=== PATIENT | male | born 1960 | race Caucasian/White ===

== ENCOUNTER 2019-09-12 15:19 | Emergency (ER) | payer SELFPAY ==
[2019-09-12 15:32] VITALS: TEMP 97.9; BMI 27.8
[2019-09-12] MEDS ORDERED: PANTOPRAZOLE SODIUM 40 MG in SODIUM CHLORIDE 100 ML IVPB ONE (15:48)
[2019-09-12] MEDS ORDERED: LABETALOL HCL 5 MG/1 ML (100MG/20 ML VIAL) IVPUSH ONE ×3 (15:49→18:25)
[2019-09-12] MEDS ORDERED: LABETALOL HCL 5 MG/1 ML (100MG/20 ML VIAL) ONE (16:06)
[2019-09-12] MEDS ORDERED: PANTOPRAZOLE SODIUM 40 MG VIAL ONE (16:06)
[2019-09-12 16:58] LABS: ALBUMIN 3.8 g/dl (3.4-5.0); BILIRUBIN,TOTAL 0.9 mg/dl (0.2-1); CALCIUM 8.4 mg/dl (8.5-10); CREATININE 0.8 mg/dl (0.55-1.3); TOT PROT 6.5 g/dl (6.4-8.2)
[2019-09-12 16:59] LABS: BASO % 0.6 % (0-2.0); EOS % 2.1 % (0-4.5); HEMATOCRIT 44.6 % (35.4-49); HEMOGLOBIN 14.5 GM/dl (11.7-16.9); LYMPH % 40.1 % (8-40); MCH 31.1 pg (25.7-33.7); MCHC 32.6 g/dl (32.0-35.9); MEAN CELL VOLUME 95.4 fl (80-96); MEAN PLT VOLUME 9.3 fl (7.5-11.1); MONO % 14.2 % (3.8-10.2); PLATELET COUNT 141 K/MM3 (134-434); RBC 4.67 M/mm3 (4.00-5.60); RDW 12.3 % (11.9-15.9); WHITE BLOOD COUNT 3.5 K/mm3 (4.0-10.8)
[2019-09-12] MEDS ORDERED: MAG HYDROX/AL HYDROX/SIMETH -MYLANTA- ORAL SUSPENSION PO ONE (18:24)
[2019-09-12] MEDS ORDERED: MAG HYDROX/AL HYDROX/SIMETH 30 ML UNIT-DOSE CUP ONE (18:39)
--- NOTE | 2019-09-12 19:02 | PDOC ---
Documentation entered by Shireen Patricia SCRIBE, acting as scribe for Kody Stanford MD. Kody Stanford MD: This documentation has been prepared by the scribe, Shireen York SCRIBE, under my direction and personally reviewed by me in its entirety. I confirm that the documentation accurately reflects all work, treatment, procedures, and medical decision making performed by me. History of Present Illness <Adriana Oates - Last Filed: 09/13/19 00:46> - General History Source: Patient Exam Limitations: No Limitations <Kody Stanford - Last Filed: 09/13/19 09:46> - General Chief Complaint: Chest Pain Stated Complaint: chest pain - History of Present Illness Initial Comments: 09/12/19 15:28 The patient is a 58 year old male with a significant PMH of NC (october 2011) who presents to the ED sent by his felter tennis balls for evaluation of hypertension and midsternal chest tightness. Patient reports that he was tested positive for the influenza yesterday at Urgent Care and upon taking his BP it was 155/115, he notes he is now on tamiflu and has been experiencing diarrhea. Patient then reports that today, he took his BP again and it was 160/120, so patient called his felter tennis balls's office who advised him to come to the ED. Patient states that he normally has GI issues, including indigestion, for which he normally takes probiotic yogurt for and occasional tums. He endorses feeling his indigestion today. Patient reports having a stress test on Sunday09/10/2019, which was unremarkable. 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 NC October 2011. The patient denies shortness of breath, headache and dizziness. Denies fever, chills, nausea, vomiting, and constipation. Denies dysuria, frequency, urgency and hematuria. Allergies: NKDA Social Hx: Family Hx: none reported Surgical Hx: Tried to place stent, unsuccessful. PCP: Cards: Michael (Kody Stanford) Past History <Adriana Oates - Last Filed: 09/13/19 00:46> - Past Medical History Anemia: No Asthma: No Cancer: No Cardiac Disorders: Yes (NC 2011) CVA: No COPD: No CHF: No Dementia: No Diabetes: No GI Disorders: Yes (GAS/BLOATING) Disorders: No HTN: Yes Hypercholesterolemia: Yes Liver Disease: No Seizures: No Thyroid Disease: No - Surgical History Abdominal Surgery: No Appendectomy: No Cardiac Surgery: Yes (CARDIAC STENTING 2011) Cholecystectomy: No Lung Surgery: No Neurologic Surgery: No Orthopedic Surgery: No - Psycho Social/Smoking Cessation Hx Smoking History: Never smoked Have you smoked in the past 12 months: No Hx Alcohol Use: Yes (3 X SEVERAL DAYS WKLY) Drug/Substance Use Hx: No Substance Use Type: Alcohol Hx Substance Use Treatment: No <Kody Stanford - Last Filed: 09/13/19 09:46> - Past Medical History Allergies/Adverse Reactions: Allergies Allergy/AdvReac Type Severity Reaction Status Date / Time No Known Drug Allergies Allergy Verified 09/12/19 15:20 ENVIRONMENTAL Allergy Intermediate NASAL Uncoded 09/12/19 15:20 CONGESTION WOOL Allergy Intermediate Itching Uncoded 09/12/19 15:20 Home Medications: Ambulatory Orders Benazepril HCl 40 mg PO BID tablet 08/24/14 Carvedilol 12.5 mg PO BID tablet 08/24/14 Rosuvastatin Calcium [Crestor] 5 mg PO DAILY tablet 12/29/16 Spironolactone 50 mg PO DAILY tablet 12/29/16 Cardiac Specific PMH - Complaint Specific PMHX Pacemaker: No <Kody Stanford - Last Filed: 09/13/19 09:46> *Physical Exam <Kody Stanford - Last Filed: 09/13/19 09:46> - Vital Signs Last Vital Signs Temp Pulse Resp BP Pulse Ox 97.9 F 63 17 161/11 L 97 09/12/19 15:20 09/12/19 20:00 09/12/19 20:00 09/12/19 20:00 09/12/19 18:55 - Physical Exam 09/12/19 16:30 VITALS: (+) BP moderatly elevated. GENERAL: Well-appearing, well-nourished. No apparent distress. HEENT: Normocephalic, atraumatic. PERRL, EOM intact. CARDIOVASCULAR: S2 was not prominent. Normal S1, S2. Regular rate and rhythm. PULMONARY: Clear to auscultation bilaterally. ABDOMEN: Soft, non-distended, non-tender. EXTREMITIES: Normal ROM in all four extremities. No gross deformities. SKIN: Warm, dry. No rash NEUROLOGICAL: No focal neurological deficits. (Kody Stanford) ED Treatment Course - LABORATORY CBC & Chemistry Diagram: 09/12/19 16:28 09/12/19 16:28 <Adriana Oates - Last Filed: 09/13/19 00:46> - LABORATORY CBC & Chemistry Diagram: 09/12/19 16:28 09/12/19 16:28 <Kody Stanford - Last Filed: 09/13/19 09:46> - ADDITIONAL ORDERS Additional order review: 09/12/19 16:28 RBC 4.67 MCV 95.4 MCHC 32.6 RDW 12.3 MPV 9.3 Neutrophils % 43.0 Lymphocytes % 40.1 H D Monocytes % 14.2 H Eosinophils % 2.1 Basophils % 0.6 - RADIOLOGY Radiology Studies Ordered: Category Date Time Status CHEST X-RAY PORTABLE* [RAD] Stat Radiology 09/12/19 15:48 Completed - Medications Given in the ED: ED Medications Discontinued Medications Generic Name Dose Route Start Last Admin Trade Name Freq PRN Reason Stop Dose Admin Al Hydroxide/Mg Hydroxide 30 ml 09/12/19 18:24 09/12/19 18:40 Mylanta Suspension - PO 09/12/19 18:25 30 ml ONCE ONE Administration Pantoprazole Sodium 40 mg/ 100 mls @ 200 mls/hr 09/12/19 15:48 09/12/19 16:06 Sodium Chloride IVPB 09/12/19 16:17 200 mls/hr ONCE ONE Administration Labetalol HCl 20 mg 09/12/19 15:49 09/12/19 16:06 Normodyne Injection - IVPUSH 09/12/19 15:50 20 mg ONCE ONE Administration Labetalol HCl 20 mg 09/12/19 17:08 09/12/19 17:16 Normodyne Injection - IVPUSH 09/12/19 17:09 20 mg ONCE ONE Administration Labetalol HCl 10 mg 09/12/19 18:25 09/12/19 18:41 Normodyne Injection - IVPUSH 09/12/19 18:26 10 mg ONCE ONE Administration Medical Decision Making <Kody Stanford - Last Filed: 09/13/19 09:46> - Medical Decision Making 09/12/19 17:10 Patient with high blood pressure, normally adequately controlled under the care of felter tennis balls Dr. Tinsley. Noted to be elevated today. He also developed epigastric and lower mid chest pain, which is similar in character to pain in the past that has been attributed to hyperacidity. It is described as an epigastric and lower sternal burning and "tightness" there was no radiation to the shoulders arms neck or jaw. There was no nausea, diaphoresis, lightheadedness or dizziness, or shortness of breath. Patient is being treated for influenza with Tamiflu. Had a positive flu swab at urgent care 2 days ago. Past medical history significant for an NC October 2011, no stent or CABG, medically managed. Stable since then. Had a normal stress test last week. Took his blood pressure medication today as scheduled. Admits to being under stress Physical exam: Alert oriented no acute distress cooperative. Somewhat anxious appearing. Afebrile, vital signs normal except for elevated blood pressure, initially in the 170/120 range, then decreasing to 150/110. Fundi were benign, neurological was intact, lungs were clear, and cardiac exam was normal including a normal S2 heart sound. No edema Impression is elevated blood pressure, probably due to increased emotional stress and stress of current influenza illness.. Chest pain, probably of GI origin, considering the character of the pain, previous similar pain attributed to dyspepsia, and normal stress test within a week, but rule out ACS nonetheless. 09/12/19 17:36 EKG reveals normal sinus rhythm 61/min. Left axis. LVH but possibly normal variant. No ST-T wave changes. No evidence of ischemia. Chest x-ray clear CBC and chemistries: Cardiac enzymes normal. Mildly depressed white count of 3.5 with a rightward shift consistent with present influenza. Otherwise no abnormalities. Patient's epigastric/chest discomfort has diminished with Protonix. His blood pressure has decreased to 150/107. However he still has a mild "burning" and "knot" in his epigastrium. Further questioning reveals that he has quite upset about the of his son, which occurred exactly 2 years ago at this time, and he has been feeling considerably sad and anxious. Oral antacids were administered. The patient will be observed and repeat EKG and enzymes performed after [address] S[address] out to Dr. Oates 9 PM pending repeat EKG and enzymes, further evaluation. Patient clinically and hemodynamically stable, in no severe pain. (Kody Stanford) Discharge - Discharge Information Problems reviewed: Yes <Adriana Oates - Last Filed: 09/13/19 00:46> - Discharge Information Problems reviewed: Yes <Kody Stanford - Last Filed: 09/13/19 09:46> - Discharge Information Clinical Impression/Diagnosis: Atypical chest pain Hypertension Qualifiers: Hypertension type: essential hypertension Qualified Code(s): I10 - Essential (primary) hypertension Condition: Stable Disposition: HOME - Patient Discharge Instructions Patient Printed Discharge Instructions: DI for Atypical Chest Pain Additional Instructions: increase dosage of Carvedilol to 25mg in the AM, 12.5 mg at bedtime as per Dr Tinsley Monitor blood pressure readings at home as recommended by continue other medications as previously prescribed complete Tamiflu 75mg twice a day for 5 day course return to ER if you experience chest pain/tightness,shortness of breath followup with Dr Tinsley as scheduled
--- NOTE | 2019-09-12 19:35 | PDOC ---
*Physical Exam - Vital Signs Last Vital Signs Temp Pulse Resp BP Pulse Ox 97.9 F 61 20 143/108 H 97 09/12/19 15:20 09/12/19 18:55 09/12/19 18:55 09/12/19 18:55 09/12/19 18:55 ED Treatment Course - LABORATORY CBC & Chemistry Diagram: 09/12/19 16:28 09/12/19 16:28 - ADDITIONAL ORDERS Additional order review: Laboratory Results 09/12/19 09/12/19 16:28 16:28 Sodium 138 Potassium 4.0 Chloride 104 Carbon Dioxide 26 Anion Gap 8 BUN 13.0 Creatinine 0.8 Est GFR (CKD-EPI)AfAm 114.93 Est GFR (CKD-EPI)NonAf 99.16 Random Glucose 101 Calcium 8.4 L Total Bilirubin 0.9 AST 23 ALT 27 Alkaline Phosphatase 48 Creatine Kinase 76 Troponin I < 0.03 Total Protein 6.5 Albumin 3.8 09/12/19 16:28 RBC 4.67 MCV 95.4 MCHC 32.6 RDW 12.3 MPV 9.3 Neutrophils % 43.0 Lymphocytes % 40.1 H D Monocytes % 14.2 H Eosinophils % 2.1 Basophils % 0.6 - Medications Given in the ED: ED Medications Discontinued Medications Generic Name Dose Route Start Last Admin Trade Name Freq PRN Reason Stop Dose Admin Al Hydroxide/Mg Hydroxide 30 ml 09/12/19 18:24 09/12/19 18:40 Mylanta Suspension - PO 09/12/19 18:25 30 ml ONCE ONE Administration Pantoprazole Sodium 40 mg/ 100 mls @ 200 mls/hr 09/12/19 15:48 09/12/19 16:06 Sodium Chloride IVPB 09/12/19 16:17 200 mls/hr ONCE ONE Administration Labetalol HCl 20 mg 09/12/19 15:49 09/12/19 16:06 Normodyne Injection - IVPUSH 09/12/19 15:50 20 mg ONCE ONE Administration Labetalol HCl 20 mg 09/12/19 17:08 09/12/19 17:16 Normodyne Injection - IVPUSH 09/12/19 17:09 20 mg ONCE ONE Administration Labetalol HCl 10 mg 09/12/19 18:25 09/12/19 18:41 Normodyne Injection - IVPUSH 09/12/19 18:26 10 mg ONCE ONE Administration ED Progress Note - Progress Note Progress Note: 09/12/19 20:38 Care of this patient received from Patient reports improvement in his lower chest/epigastric discomfort after Mylanta. The patient has contacted his car body designer, by telephone and was recommended to increase his Carvidilol to 25 mg in the morning and 12.5 mg at bedtime. He will monitor his blood pressure through the weekend and contact Dr. Tinsley regarding results. Follow-up with her will be next week. Repeat troponin level is not elevated (less than 0.03). Patient will be discharged with instructions for increase in his antihypertensive medication as noted above. He should return to the ER if he has any recurrence of his chest/upper abdominal discomfort, shortness of breath or other new severe symptoms Discharge - Discharge Information Problems reviewed: Yes Clinical Impression/Diagnosis: Atypical chest pain Hypertension Qualifiers: Hypertension type: essential hypertension Qualified Code(s): I10 - Essential (primary) hypertension Condition: Stable Disposition: HOME - Follow up/Referral - Patient Discharge Instructions Patient Printed Discharge Instructions: DI for Atypical Chest Pain Additional Instructions: increase dosage of Carvedilol to 25mg in the AM, 12.5 mg at bedtime as per Dr Tinsley Monitor blood pressure readings at home as recommended by continue other medications as previously prescribed complete Tamiflu 75mg twice a day for 5 day course return to ER if you experience chest pain/tightness,shortness of breath followup with Dr Tinsley as scheduled - Post Discharge Activity
[2019-09-12 20:09] VITALS: BP 161/11; PULSE 63
--- NOTE | 2019-09-13 11:29 | EKG ---
Test Reason : Blood Pressure : / mmHG Vent. Rate : 061 BPM Atrial Rate : 061 BPM P-R Int : 148 ms QRS Dur : 086 ms QT Int : 418 ms P-R-T Axes : 038 -36 024 degrees QTc Int : 420 ms NORMAL SINUS RHYTHM LEFT AXIS DEVIATION MINIMAL VOLTAGE CRITERIA FOR LVH, MAY BE NORMAL VARIANT ABNORMAL ECG NO PREVIOUS ECGS AVAILABLE Confirmed by MD Candelario, Drew ([id number]) on 09/13/2019 11:29:23 AM Referred By: DR CHU Confirmed By:Drew Palomino MD
== END 2019-09-12 20:40 | disposition home or self-care (01) ==
LOC: FER 15:19
PROC: 3E033GC Introduction of Other Therapeutic Substance into Peripheral Vein, Percutaneous Approach (ICD-10-PCS; principal; 2019-09-12)
DX: R07.89 Other chest pain (principal); I10 Essential (primary) hypertension; Z91.09 Other allergy status, other than to drugs and biological substances; I25.2 Old myocardial infarction; Z95.5 Presence of coronary angioplasty implant and graft
CPT/HCPCS: 36415; 71045-TC-FY; 80053; 82550; 84484; 85025; 93005; 99285-25